=== PATIENT | female | born 1970 | race Caucasian/White ===

== ENCOUNTER 2016-08-23 12:44 | Emergency (ER) | payer BC ==
--- NOTE | 2016-08-23 13:00 | ER Document Report ---
ED Medical Screen (RME) - General Stated Complaint: CHEST PAIN,LEFT SHOULDER PAIN Time seen by provider: 12:58 Mode of Arrival: Wheelchair Information source: Patient Notes: 46-year-old female presents to ED with with burning into the left shoulder and under left arm medeiros up the left neck and jaw. Last menstrual period beginning of July. Denies diaphoresis or shortness of breath, denies history of CAD the pressure cholesterol. I have greeted and performed a rapid initial assessment of this patient. A comprehensive ED assessment and evaluation of the patient, analysis of test results and completion of medical decision making process will be conducted by an additional ED providers. - Related Data Allergies/Adverse Reactions: No Known Allergies Allergy (Unverified 08/23/16 12:57)
[2016-08-23] MEDS ORDERED: ASPIRIN 81 MG TABLET, CHEWABLE PO ONE (13:02)
[2016-08-23 13:36] LABS: ABSOLUTE BASOPHILS # (AUTO) 0.1 10^3/uL (0.0-0.2); ABSOLUTE EOSINOPHILS # (AUTO) 0.3 10^3/uL (0.0-0.6); ABSOLUTE LYMPHOCYTES (AUTO) 2.8 10^3/uL (0.5-4.7); ABSOLUTE MONOCYTES (AUTO) 0.4 10^3/uL (0.1-1.4); ABSOLUTE NEUT (AUTO) 4.3 10^3/uL (1.7-8.2); BASOPHILS % (AUTO) 0.8 % (0-2); EOSINOPHILS % (AUTO) 4.3 % (0-6); HEMATOCRIT 43.6 % (36.0-47.0); HEMOGLOBIN 14.5 g/dL (12.0-15.5); HGB HCT DIFFERENCE -0.1; LYMPHOCYTES % (AUTO) 35.4 % (13-45); MEAN CORPUSCULAR HEMOGLOBIN 29.6 pg (27.0-33.4); MEAN CORPUSCULAR HGB CONC 33.2 g/dL (32.0-36.0); MEAN CORPUSCULAR VOLUME 89 fl (80-97); MONOCYTES % (AUTO) 5.5 % (3-13); RED CELL DISTRIBUTION WIDTH 12.5 % (11.5-14.0); WHITE BLOOD COUNT 7.9 10^3/uL (4.0-10.5)
[2016-08-23 13:40] LABS: APPEARANCE,URINE SLIGHTLY-CLOUDY; BILIRUBIN,URINE NEGATIVE (NEGATIVE); GLUCOSE, URINE NEGATIVE (NEGATIVE); KETONES,URINE NEGATIVE (NEGATIVE); LEUKOCYTE ESTERASE,URINE NEGATIVE (NEGATIVE); NITRITE,URINE NEGATIVE (NEGATIVE); PROTEIN,URINE NEGATIVE (NEGATIVE); URINE SPECIFIC GRAVITY 1.014; UROBILINOGEN,URINE NEGATIVE mg/dL (<2.0)
[2016-08-23 13:42] LABS: PROTHROMBIN TIME 12.6 SEC (11.4-15.4)
[2016-08-23 13:43] LABS: PARTIAL THROMBOPLASTIN TIME 30.2 SEC (23.5-35.8)
[2016-08-23 14:00] LABS: ALANINE AMINOTRANSFERASE 38 U/L (9-52); ALBUMIN 4.6 g/dL (3.5-5.0); ALKALINE PHOSPHATASE 61 U/L (38-126); ANION GAP 12 (5-19); ASPARTATE AMINO TRANSFERASE 21 U/L (14-36); BILIRUBIN,TOTAL 0.5 mg/dL (0.2-1.3); BLOOD UREA NITROGEN 12 mg/dL (7-20); CALCIUM 9.4 mg/dL (8.4-10.2); CARBON DIOXIDE 25 mmol/L (22-30); CHLORIDE 105 mmol/L (98-107); CREATINE KINASE 72 U/L (30-135); CREATININE RESULT 0.72 mg/dL (0.52-1.25); GLUCOSE 95 mg/dL (75-110); POTASSIUM 4.2 mmol/L (3.6-5.0); SODIUM 141.8 mmol/L (137-145); TOTAL PROTEIN 7.4 g/dL (6.3-8.2)
[2016-08-23 14:12] LABS: CREATINE KINASE MB 0.36 ng/mL (<4.55)
[2016-08-23 14:16] LABS: TROPONIN I < 0.012 ng/mL
--- NOTE | 2016-08-23 15:26 | ER Document Report ---
ED Cardiac - General Chief Complaint: Chest Pain Stated Complaint: CHEST PAIN,LEFT SHOULDER PAIN Mode of Arrival: Wheelchair Information source: Patient TRAVEL OUTSIDE OF THE [place] IN LAST 30 DAYS: No - HPI Patient complains to provider of: Chest pain Was the onset of pain: Sudden When did pain begin: LATE A.M. TODAY Is the pain a: New problem Chest pain location: Other - LEFT PECTORAL Quality of pain: Burning - LATER, Dull - AT THE BEGINNING Chest pain radiation location: Left shoulder, None - LEFT CLAVICLE AREA Severity now: Mild Severity at worst: Moderate Chest pain precipitating factors: AT WORK, IN DRUG STORE Cardiac risk factors: None Positive cardiac history: No Associated symptoms: Dizziness, Nausea/vomiting, Other - FORGETFUL, ABSENT- MINDED. denies: Diaphoresis, Shortness of breath Exacerbated by: Torso movement, Other - MOVEMENT OF L. UPPER EXTREMITY Relieved by: Nothing Similar symptoms previously: No Recently seen / treated by doctor: Yes - SEE NOTE BELOW Notes: Patient is being treated by her primary care provider for musculoskeletal discomfort involving the low back and lower extremities. She has been on ibuprofen and cyclobenzaprine for the past 10 days or so and says it has helped only a little bit. Also, she is taking amitriptyline 25 mg nightly at bedtime. She has a follow-up appointment with her primary care provider on August 27, 4 days from now. - Related Data Allergies/Adverse Reactions: No Known Allergies Allergy (Unverified 08/23/16 12:57) Past Medical History - General Information source: Patient - Social History Smoking Status: Never Smoker Chew tobacco use (# tins/day): No Frequency of alcohol use: Occasional Drug Abuse: None Lives with: Spouse/Significant other Family History: Other - SIBLINGS W/ MARFAN SYNDROME (PT. HAS HAD NEG. W/U) Patient has suicidal ideation: No Patient has homicidal ideation: No - Past Medical History Cardiac Medical History: Reports: None Pulmonary Medical History: Reports: None EENT Medical History: Reports: None Neurological Medical History: Reports: None Endocrine Medical History: Reports: None Renal/ Medical History: Reports: None. Denies: Hx Peritoneal Dialysis Malignancy Medical History: Reports: None GI Medical History: Reports: None Musculoskeltal Medical History: Reports None Psychiatric Medical History: Reports: None Surgical Hx: Negative Review of Systems - Review of Systems Constitutional: No symptoms reported EENT: No symptoms reported Cardiovascular: See HPI Respiratory: No symptoms reported. denies: Short of breath Gastrointestinal: See HPI, Nausea. denies: Vomiting Genitourinary: No symptoms reported Female Genitourinary: No symptoms reported Musculoskeletal: See HPI Skin: No symptoms reported Neurological/Psychological: No symptoms reported -: Yes All other systems reviewed and negative Physical Exam - Vital signs Vitals: Temp Pulse Resp BP Pulse Ox 97.9 F 90 18 114/74 98 08/23/16 12:58 08/23/16 12:58 08/23/16 12:58 08/23/16 12:58 08/23/16 12:58 Interpretation: Normal - General General appearance: Appears well, Alert In distress: None - HEENT Head: Normocephalic Eyes: Normal Conjunctiva: Normal Ears: Normal Nasal: Normal Mouth/Lips: Normal Mucous membranes: Normal Pharynx: Normal Neck: Normal - Respiratory Respiratory status: No respiratory distress Breath sounds: Normal - Cardiovascular Rhythm: Regular Heart sounds: Normal auscultation Murmur: No - Abdominal Inspection: Normal Bowel sounds: Normal - Back Back: Normal - Extremities General upper extremity: Normal inspection General lower extremity: Normal inspection - Neurological Neuro grossly intact: Yes Cognition: Normal Orientation: AAOx4 - Psychological Associated symptoms: Normal affect, Normal mood - Skin Skin Temperature: Warm Skin Moisture: Dry Skin Color: Normal Skin Turgor: Elastic Skin irregularity: Erythema Location of irregularity: Other - L. CLAVICULAR AND TRAPEZIUS AREA Course - Vital Signs Vital signs: Temp Pulse Resp BP Pulse Ox 97.9 F 90 19 112/73 99 08/23/16 12:58 08/23/16 12:58 08/23/16 17:00 08/23/16 16:00 08/23/16 17:00 - Laboratory Result Diagrams: 08/23/16 13:12 08/23/16 13:12 Discharge - Discharge Clinical Impression: Chest pain with minimal risk for cardiac etiology Condition: Stable Disposition: HOME, SELF-CARE Instructions: Chest Pain of Unclear Cause ([facility]), Ibuprofen (General) ([facility]), Muscle Relaxers ([facility]) Additional Instructions: REST, AVOID PAINFUL ACTIVITY. CONTINUE TAKING IBUPROFEN AND AMITRIPTYLINE USUAL. STOP CYCLOBENZAPRINE, BEGIN TAKING CARISOPRODOL INSTEAD. FOLLOW UP WITH YOUR PRIMARY CARE PROVIDER FRIDAY SCHEDULED. RETURN TO E.R. FOR RE-EVALUATION IF YOU GET WORSE, ANY TIME. Prescriptions: Carisoprodol [Soma 350 mg Tablet] 350 mg PO TIDP PRN #10 tablet PRN Reason: FOR MUSCLE RELAXATION
[2016-08-23 17:27] LABS: TROPONIN I < 0.012 ng/mL
[2016-08-23 18:49] VITALS: BP 108/68
--- NOTE | 2016-08-23 20:00 | EKG REPORT ---
SEVERITY:- NORMAL ECG - SINUS RHYTHM : Confirmed by: Freya Urrutia MD 23-Aug-2016 20:00:06
== END 2016-08-23 18:45 | disposition home or self-care (01) ==
LOC: ER 12:44
DX: R07.9 Chest pain, unspecified (principal); M25.512 Pain in left shoulder; R42 Dizziness and giddiness; R11.2 Nausea with vomiting, unspecified
CPT/HCPCS: 36415; 71020; 80053; 81001; 82550; 82553; 83735; 84443; 84484; 85025; 85610; 85730; 93005; 93010; 99285

== ENCOUNTER 2017-01-31 10:41 | Emergency (ER) | payer SELFPAY ==
[2017-01-31 10:47] VITALS: BP 115/66
[2017-01-31] MEDS ORDERED: IBUPROFEN 800 MG TABLET PO ONE (11:03)
--- NOTE | 2017-01-31 11:37 | ER Document Report ---
ED Extremity Problem, Lower - General Chief Complaint: Leg Pain Stated Complaint: RIGHT LEG PAIN Time Seen by Provider: 01/31/17 10:53 Notes: patient is a 46-year-old female who presents emergency department complaining of right foot pain. Patient states that she dropped a chair on the right foot approximately 6 weeks ago she is been able to walk on it ever since. She presents today with concerns of a blood clot since she has intermittent calf pain that started yesterday. Patient states that since yesterday her foot has been hurting to touch but denies any difficulty ambulating, denies any difficulty with range of motion, numbness or tingling. She admits to minor swelling. She denies any recent injury. She denies any fevers, chills, shortness of breath, difficulty breathing. She has had Pain on and off for the past 6 weeks she has noticed more recently when she wears flip-flops instead of tennis shoes. She has not been evaluated for this problem. She denies any recent travel, recent surgeries, history of cancer, history of blood clots, use of control, patient is a non-smoker TRAVEL OUTSIDE OF THE [place] IN LAST 30 DAYS: No - Related Data Allergies/Adverse Reactions: No Known Allergies Allergy (Verified 01/31/17 10:45) Past Medical History - Social History Smoking Status: Never Smoker Chew tobacco use (# tins/day): No Frequency of alcohol use: Social Drug Abuse: None Family History: Other - SIBLINGS W/ MARFAN SYNDROME (PT. HAS HAD NEG. W/U) Patient has suicidal ideation: No Patient has homicidal ideation: No Renal/ Medical History: Denies: Hx Peritoneal Dialysis Past Surgical History: Reports: Hx Cholecystectomy, Hx Orthopedic Surgery, Hx Tonsillectomy - Immunizations Hx Diphtheria, Pertussis, Tetanus Vaccination: Yes Review of Systems - Review of Systems Constitutional: No symptoms reported Cardiovascular: No symptoms reported Respiratory: No symptoms reported Musculoskeletal: See HPI Neurological/Psychological: No symptoms reported -: Yes All other systems reviewed and negative Physical Exam - Vital signs Vitals: Temp Pulse Resp BP Pulse Ox 98.0 F 89 16 115/66 97 01/31/17 10:45 01/31/17 10:45 01/31/17 10:45 01/31/17 10:45 01/31/17 10:45 - General General appearance: Appears well, Alert In distress: None - Respiratory Respiratory status: No respiratory distress Chest status: Nontender Breath sounds: Normal Chest palpation: Normal - Cardiovascular Rhythm: Regular. No: Tachycardia Heart sounds: Normal auscultation, S1 appreciated, S2 appreciated Pulses: Normal: Radial, Dorsalis pedis Normal capillary refill: Yes - Extremities General lower extremity: Edema - bilateral 1+ pitting edema without erythema, - homans sign Calf: No: Tender, Abrasion, Deformity, Ecchymosis, Instability, Laceration, Unable to bear weight Ankle: Normal, Nontender. No: Deformity, Limited ROM, Positive Jones's test , Unable to bear weight Foot: Edema - over the 3rd metatarsal of the right foot. No: Instability, Metatarsal compress. pain, Unable to bear weight - Neurological Neuro grossly intact: Yes Cognition: Normal Orientation: AAOx4 Isaias Coma Scale Eye Opening: Spontaneous Isaias Coma Scale Verbal: Oriented [place] Coma Scale Motor: Obeys Commands [place] Coma Scale Total: 15 Motor strength normal: LUE, RUE, LLE, RLE Additional motor exam normals: Other - normal gait. No: Weakness Sensory: Normal - Skin Skin Temperature: Warm Skin Moisture: Dry Skin Color: Normal Skin Turgor: Elastic Skin irregularity: negative: Erythema, Laceration, Tender indurated area Course - Re-evaluation Re-evalutation: 01/31/17 11:37 Patient is a 46-year-old female who presents with right intermittent foot pain. Well score 0. Patient able to ambulate without any difficulty. No evidence of fracture dislocation noted on x-ray. Bone spur with soft tissue swelling. Patient instructed to take [id number] anti-inflammatories and follow-up with her primary care provider. Patient is declining any Blake wrap, steroid, additional anti-inflammatory medication. Also declining any other referrals. Patient stable for discharge home. - Vital Signs Vital signs: Temp Pulse Resp BP Pulse Ox 98.0 F 89 16 115/66 97 01/31/17 10:45 01/31/17 10:45 01/31/17 10:50 01/31/17 10:45 01/31/17 10:45 - Diagnostic Test Radiology reviewed: Image reviewed, Reports reviewed Discharge - Discharge Clinical Impression: Foot pain Qualifiers: Laterality: right Qualified Code(s): M79.671 - Pain in right foot Condition: Good Disposition: HOME, SELF-CARE Instructions: Exercises for the Foot Muscles ([facility]), Anti-Inflammatory Medication ([facility]) Referrals: [facility] [NO LOCAL MD] - Follow up as needed
--- NOTE | 2017-01-31 11:46 | RADIOLOGY REPORT (SQ) ---
EXAM DESCRIPTION: ANKLE RIGHT COMPLETE COMPLETED DATE/TIME: 01/31/2017 11:34 am REASON FOR STUDY: pain, dropped a chair on her foot 6 weeks ago COMPARISON: None. TECHNIQUE: Three views right ankle LIMITATIONS: None. FINDINGS: Ankle mortise appears intact. No acute appearing fractures. Soft tissue swelling seen. Smoothly marginated small bony density beneath the medial malleolus has a chronic appearance. IMPRESSION: No acute fracture. TECHNICAL DOCUMENTATION: JOB ID: [id number] [employer]- All Rights Reserved
--- NOTE | 2017-01-31 11:48 | RADIOLOGY REPORT (SQ) ---
EXAM DESCRIPTION: FOOT RIGHT COMPLETE COMPLETED DATE/TIME: 01/31/2017 11:34 am REASON FOR STUDY: pain, dropped a chair on her foot 6 weeks ago COMPARISON: None. TECHNIQUE: Three views study right foot LIMITATIONS: None. FINDINGS: No acute fractures identified. Bony structures and joint spaces intact. No evidence for plantar calcaneal spur. Small cyst is note d of the great toe. IMPRESSION: No acute bony changes peer TECHNICAL DOCUMENTATION: JOB ID: [id number] [employer]- All Rights Reserved
== END 2017-01-31 12:14 | disposition home or self-care (01) ==
LOC: ER 10:41
DX: M79.671 Pain in right foot (principal); Z90.49 Acquired absence of other specified parts of digestive tract
CPT/HCPCS: 99283

== ENCOUNTER 2017-10-03 02:02 | Emergency (ER) | payer SELFPAY ==
[2017-10-03] MEDS ORDERED: HYDROMORPHONE HCL INJ/PF 2 MG/ML AMPULE IV ONE (03:12)
[2017-10-03] MEDS ORDERED: NORMAL SALINE 1000 ML 1,000 ML IV ONE (03:12)
[2017-10-03] MEDS ORDERED: ONDANSETRON HCL INJ/PF 4 MG/2 ML SDV IV ONE ×2 (03:12→04:35)
--- NOTE | 2017-10-03 03:15 | ER Document Report ---
ED GI/ - General Chief Complaint: Abdominal Pain Stated Complaint: RIGHT SIDE PAIN Time Seen by Provider: 10/03/17 03:03 Notes: Patient is a 47-year-old female that comes emergency department for chief complaint of lower abdominal pain, patient states that pain started about 4 AM last night, she states is continuous but has worsened and now she has been nauseated. She states pain is significantly worse tonight so she came in for evaluation. She has had a cholecystectomy, does not take any medications. Had a loose bowel movement earlier tonight, nonbloody. She denies fever, vaginal discharge, vaginal bleeding. TRAVEL OUTSIDE OF THE [place] IN LAST 30 DAYS: No - Related Data Allergies/Adverse Reactions: egg Allergy (Verified 10/03/17 02:09) Past Medical History - General Information source: Patient - Social History Smoking Status: Never Smoker Drug Abuse: None Lives with: Family Family History: Other - SIBLINGS W/ MARFAN SYNDROME (PT. HAS HAD NEG. W/U) Patient has suicidal ideation: No Patient has homicidal ideation: No Renal/ Medical History: Denies: Hx Peritoneal Dialysis Past Surgical History: Reports: Hx Cholecystectomy, Hx Orthopedic Surgery, Hx Tonsillectomy - Immunizations Hx Diphtheria, Pertussis, Tetanus Vaccination: Yes Review of Systems - Review of Systems Constitutional: No symptoms reported EENT: No symptoms reported Cardiovascular: No symptoms reported Respiratory: No symptoms reported Gastrointestinal: See HPI Genitourinary: See HPI Female Genitourinary: No symptoms reported Musculoskeletal: No symptoms reported Skin: No symptoms reported Hematologic/Lymphatic: No symptoms reported Neurological/Psychological: No symptoms reported Physical Exam - Vital signs Vitals: Temp Pulse Resp BP Pulse Ox 97.9 F 106 H 20 122/74 100 10/03/17 02:07 10/03/17 02:07 10/03/17 02:07 10/03/17 02:07 10/03/17 02:07 Interpretation: Normal - General General appearance: Anxious In distress: Mild - Patient appears to be uncomfortable, shifting in the bed - HEENT Head: Normocephalic, Atraumatic Eyes: Normal Pupils: PERRL - Respiratory Respiratory status: No respiratory distress Chest status: Nontender Breath sounds: Normal Chest palpation: Normal - Cardiovascular Rhythm: Regular. No: Tachycardia Heart sounds: Normal auscultation, S1 appreciated, S2 appreciated Murmur: No - Abdominal Inspection: Normal Distension: No distension Bowel sounds: Normal Tenderness: Tender - Tender in the mid to lower abdomen, this is reproducible, abdomen nontender and unremarkable otherwise Organomegaly: No organomegaly - Back Back: Normal, Nontender. No: Tender, CVA tenderness - Extremities General upper extremity: Normal inspection, Nontender, Normal color, Normal ROM , Normal temperature General lower extremity: Normal inspection, Nontender, Normal color, Normal ROM , Normal temperature, Normal weight bearing. No: Monserrat's sign - Neurological Neuro grossly intact: Yes Cognition: Normal Orientation: AAOx4 Isaias Coma Scale Eye Opening: Spontaneous Isaias Coma Scale Verbal: Oriented [place] Coma Scale Motor: Obeys Commands Isaias Coma Scale Total: 15 Speech: Normal Motor strength normal: LUE, RUE, LLE, RLE Sensory: Normal - Psychological Associated symptoms: Normal affect, Normal mood - Skin Skin Temperature: Warm Skin Moisture: Dry Skin Color: Normal Course - Re-evaluation Re-evalutation: Patient with mid to right lower abdominal tenderness which is reproducible. Remaining abdomen unremarkable. No CVA tenderness. Patient is uncomfortable initially. After medication symptoms completely resolved. CBC shows mild leukocytosis with no shift, chemistry unremarkable, urine does show some hematuria and white blood cells with 1+ bacteria. CAT scan was performed because of ongoing discomfort in the right lower abdomen on exam, CAT scan shows normal-appearing appendix, shows evidence of inflammation of the right urinary tract along with right-sided hydronephrosis with no obvious stone or obstruction otherwise. Patient very well-appearing on reevaluation. Discussed possibilities, discussed that this still could be appendicitis although patient's presentation and workup are more suggestive of a passed stone. Discussed expectations, follow-up, discussed return precautions in detail with patient and . They state understanding and agreement. - Vital Signs Vital signs: Temp Pulse Resp BP Pulse Ox 97.4 F 68 16 110/71 100 10/03/17 07:50 10/03/17 07:50 10/03/17 07:50 10/03/17 07:50 10/03/17 07:50 - Laboratory Result Diagrams: 10/03/17 03:33 10/03/17 03:33 Laboratory results interpreted by me: 10/03/17 10/03/17 10/03/17 03:33 03:33 04:05 WBC 11.1 H Sodium 145.3 H Chloride 109 H AST 37 H Urine Blood LARGE H Discharge - Discharge Clinical Impression: Lower abdominal pain Disposition: HOME, SELF-CARE Additional Instructions: Your evaluation and workup are most consistent with you recently passing a kidney stone and a possible urinary tract infection. Take the Keflex antibiotics as prescribed to completion, take Phenergan for nausea if needed, morphine for pain if needed. Follow-up with primary care. Return if you worsen in anyway including fever of 100.4 or greater, vomiting, returned or worsening pain, or any other concerning or worsening symptoms. Prescriptions: Morphine Sulfate [Morphine Ir 15 Mg Tablet] 15 mg PO Q4HP PRN #12 tablet PRN Reason: Cephalexin Monohydrate [Keflex 500 mg Capsule] 500 mg PO BID #14 capsule Promethazine HCl [Phenergan 25 mg Tablet] 1 - 2 tab PO Q6H PRN #15 tablet PRN Reason:
[2017-10-03 03:49] LABS: ABSOLUTE BASOPHILS # (AUTO) 0.1 10^3/uL (0.0-0.2); ABSOLUTE EOSINOPHILS # (AUTO) 0.2 10^3/uL (0.0-0.6); ABSOLUTE LYMPHOCYTES (AUTO) 2.5 10^3/uL (0.5-4.7); ABSOLUTE MONOCYTES (AUTO) 0.8 10^3/uL (0.1-1.4); ABSOLUTE NEUT (AUTO) 7.6 10^3/uL (1.7-8.2); BASOPHILS % (AUTO) 0.6 % (0-2); EOSINOPHILS % (AUTO) 1.8 % (0-6); HEMATOCRIT 45.2 % (36.0-47.0); HEMOGLOBIN 15.2 g/dL (12.0-15.5); LYMPHOCYTES % (AUTO) 22.2 % (13-45); MEAN CORPUSCULAR HEMOGLOBIN 29.5 pg (27.0-33.4); MEAN CORPUSCULAR HGB CONC 33.6 g/dL (32.0-36.0); MEAN CORPUSCULAR VOLUME 88 fl (80-97); MONOCYTES % (AUTO) 7.2 % (3-13); PLATELET COUNT 324 10^3/uL (150-450); RED BLOOD COUNT 5.15 10^6/uL (3.72-5.28); RED CELL DISTRIBUTION WIDTH 13.7 % (11.5-14.0); SEGMENTED NEUTROPHILS % (AUTO) 68.2 % (42-78); TOTAL CELLS COUNTED % (AUTO) 100 %; WHITE BLOOD COUNT 11.1 10^3/uL (4.0-10.5)
[2017-10-03 04:03] LABS: ALANINE AMINOTRANSFERASE 50 U/L (9-52); ALBUMIN 4.2 g/dL (3.5-5.0); ALKALINE PHOSPHATASE 90 U/L (38-126); ANION GAP 11 (5-19); ASPARTATE AMINO TRANSFERASE 37 U/L (14-36); BILIRUBIN,DIRECT 0.3 mg/dL (0.0-0.4); BILIRUBIN,TOTAL 0.3 mg/dL (0.2-1.3); BLOOD UREA NITROGEN 9 mg/dL (7-20); CALCIUM 9.5 mg/dL (8.4-10.2); CARBON DIOXIDE 25 mmol/L (22-30); CHLORIDE 109 mmol/L (98-107); GLUCOSE 108 mg/dL (75-110); POTASSIUM 3.7 mmol/L (3.6-5.0); SODIUM 145.3 mmol/L (137-145); TOTAL PROTEIN 6.9 g/dL (6.3-8.2)
[2017-10-03 04:38] LABS: APPEARANCE,URINE CLEAR; BILIRUBIN,URINE NEGATIVE (NEGATIVE); COLOR,URINE YELLOW; GLUCOSE, URINE NEGATIVE (NEGATIVE); KETONES,URINE NEGATIVE (NEGATIVE); LEUKOCYTE ESTERASE,URINE NEGATIVE (NEGATIVE); NITRITE,URINE NEGATIVE (NEGATIVE); PROTEIN,URINE NEGATIVE (NEGATIVE); URINE SPECIFIC GRAVITY 1.006; UROBILINOGEN,URINE NEGATIVE mg/dL (<2.0)
--- NOTE | 2017-10-03 07:01 | RADIOLOGY REPORT (SQ) ---
EXAM DESCRIPTION: CT ABDOMEN AND PELVIS WITH CONTRAST CLINICAL HISTORY: RLQ pain COMPARISON: None Available. TECHNIQUE: CT of the abdomen and pelvis are performed during IV bolus administration of 100 mL of Isovue-370. DLP: 2149.12 mGycm FINDINGS: Abdomen: The liver has normal size and density. No intrahepatic mass or biliary dilatation. Prior cholecystectomy. The spleen, pancreas, and adrenal glands are unremarkable. Mild right hydronephrosis with no obstructing calculi identified. Mild right perinephric fat stranding. Mild enhancement of the ureter on the right. No left-sided hydronephrosis. No exophytic renal mass. The aorta and IVC have normal caliber and position. The portal vein is patent. The proximal visceral and renal arteries are patent. No free intraperitoneal air. The stomach and duodenum have normal course. Pelvis: Uterus is not enlarged. Urinary bladder is unremarkable. No free pelvic fluid or lymphadenopathy. No dilated loops of large or small bowel. Identified. No definite evidence of appendicitis. The visualized lung bases are clear. No destructive bone lesions identified. Minimal degenerative change of the lumbar spine. IMPRESSION: 1. Mild right hydronephrosis with perinephric fat stranding and enhancement of the ureter. This could be related to recently passed right ureteral calculus or pyelonephritis. This exam was performed according to our departmental dose-optimization program, which includes automated exposure control, adjustment of the mA and/or kV according to patient size and/or use of iterative reconstruction technique.
[2017-10-03] MEDS ORDERED: CEPHALEXIN 500 MG CAPSULE PO ONE (07:22)
[2017-10-03 07:51] VITALS: BP 110/71
== END 2017-10-03 07:51 | disposition home or self-care (01) ==
LOC: ER 02:02
DX: R10.30 Lower abdominal pain, unspecified (principal); R19.7 Diarrhea, unspecified; Z90.49 Acquired absence of other specified parts of digestive tract
CPT/HCPCS: 96376; 99284; 96361; 96374; 96375; 36415; 87086; 84703; 85025; 80053; 81001; 74177; J1170; J2405; J7030